=== PATIENT | male | born 1970 | race Two or more races ===

== ENCOUNTER → 2018-11-03 08:01 | Outpatient (CLI) | payer BC, SELFPAY ==
[2018-11-03 10:30] LABS: Color, Urine Yellow (Yellow); Glucose, Dipstick Normal (Normal); Ketone-Dipstick Negative (Negative); Leukocyte Esterase-Dipstick Negative /ul (Negative); Nitrite-Dipstick Negative (Negative); Occult Blood-Urine 10 /ul (Negative); Protein-Dipstick Negative (Negative); Specific Gravity, Urine 1.015 (1.002-1.030); Urine Bilirubin Dipstick Negative (Negative); Urine Clarity Sl. Cloudy (Clear); Urine Urobilinogen Normal (Normal)
[2018-11-03 10:43] LABS: Absolute Lymphocyte Count 2.28 X10^3/ul (0.83-4.51); Absolute Neutrophil Count 4.9 X10^3/uL (2.0-7.7); Basophil# 0.03 X10^3/uL; Basophil% 0.4 % (0-1); Eosinophil# 0.09 X10^3/uL; Eosinophils% 1.1 % (0-5); Hemoglobin 14.7 g/dl (13.0-16.5); Lymphocyte # 2.28 X10^3/ul (4.0); Lymphocyte % 28.1 % (19-41); Mean Corp Hgb Conc 31.3 g/gl (32-36); Mean Corpuscular Hgb 29.3 pg (27.0-32.0); Mean Corpuscular Volume 93.6 fL (80-94); Mean Platelet Vol. 10.9 fl (6.2-12.0); Monocyte# 0.79 X10^3/uL; Monocyte% 9.7 % (0-10); Neutrophil # 4.89 X10^3/uL (2.7-7.7); Neutrophil % 60.3 % (47-70); Platelet Count 298 K/mm3 (150-450); RBC Distribution Width CV 13.4 % (11.6-14.6); RBC Distribution Width SD 45.7 fl (35.1-43.9); Red Blood Count 5.02 M/mm3 (4.6-6.2); White Blood Count 8.1 K/mm3 (4.4-11.0)
[2018-11-03 10:50] LABS: POSITIVE COUNT NO; POSITIVE DIFFERENTIAL NO; POSITIVE MORPHOLOGY NO
[2018-11-03 11:02] LABS: ALB/GLOB Ratio 0.9 RATIO (0.9-2.4); AST(SGOT) 30 U/L (15-37); Alanine Aminotransfer ALT/SGPT 54 U/L (16-61); Albumin, Serum 3.5 g/dL (3.2-5.0); Alkaline Phosphatase 56 U/L (45-117); Anion Gap 6 (5-15); BUN 11 mg/dL (7-18); BUN/Creat Ratio 12.1 RATIO (10-20); Calcium,Total 8.5 mg/dL (8.5-10.1); Chloride 105 mmol/L (98-107); Cholesterol 145 mg/dL (200); Creatinine, Serum 0.91 mg/dL (0.70-1.30); EST Glomerular Filtration Rate 95 mL/min (>60); Est Glom Filt Rate - Afr Amer 115 mL/min (>60); Globulin 3.9 g/dL (2.2-4.2); Glucose 87 mg/dL (74-106); High Density Lipoprotein 39 mg/dL; PSA,Total - Annual Screen 1.26 ng/mL (0.00-4.00); Potassium 3.9 mmol/L (3.5-5.1); Protein, Total 7.4 g/dL (6.4-8.2); Sodium Level 141 mmol/L (136-145); Triglycerides 168 mg/dL; Very Low Density Lipoprotein 34 mg/dL (5-40)
[2018-11-06 20:06] LABS: Testosterone, Free 13.98 ng/dL (5.00-21.00)
[2018-11-07 10:38] LABS: Testosterone, % Free 3.25 % (1.50-4.20); Testosterone, Total 430 ng/dL (264-916)
--- OUTSIDE RECORDS SUMMARY | 2018-12-20 01:05 | XMS RPT_ITS ---
:1970 Author Organization OHIP Care Team Providers Name Role Phone Shailesh Bean Attending Unavailable Shailesh Bean Referring Unavailable Shailesh Bean Primary Care Unavailable Shailesh Bean Attending Unavailable Shailesh Bean Attending Unavailable PROBLEMS PROBLEMS DATE TYPE CONDITION / ATTENDING STATUS SOURCE CODE 01/06/2018 Admitting Unknown / Shailesh Bean Active [facility] Medical diagnosis UNK(Unknown) G [facility] PROCEDURES PROCEDURES No Procedure Records FoundRESULTS RESULTS URINALYSIS, ROUTINE Collected: 11/03/2018 Status: F Source: MICHELE (DIPSTICK) 8:11 AM [facility] REPOSITORY Order Comment: How was Urine Obtained? CLEAN CATCH TYPE CODE TESTS RESULT OUT OF RANGE REFERENCE UNITS LAB L400.3000 Yellow COLOR Normal Yellow LAB L400.3050 Clear Normal CLARITY Sl. Cloudy LAB L400.3200 Normal mg/dl Normal GLUCOSE, UR Normal LAB L400.3300 Negative mg/dL Normal BILIRUBIN URINE Negative LAB L400.3400 Negative mg/dl Normal KETONE UR Negative LAB L400.3465 1.002-1.030 Normal SP.GR. DIPSTX 1.015 LAB L400.3550 5.0 - 8.0 pH UR Normal 6.0 LAB L400.3600 Negative mg/dl PROT Normal DIPSTX Negative LAB L400.3700 Normal mg/dl Normal UROBILI Normal LAB L400.3750 Negative Normal NITRITE UR Negative LAB L400.3780 Negative /ul High 10 OCCULT BLOOD-UR LAB L400.3800 Negative /ul LEUK Normal ESTERASE Negative Performed By: #### L400.2010 #### [facility] [address] [place], [place], [address] CBC W/DIFF, AUTOMATED Collected: 11/03/2018 Status: F Source: MICHELE 8:11 AM [facility] REPOSITORY TYPE CODE TESTS RESULT OUT OF RANGE REFERENCE UNITS LAB L100.1000 4.4-11.0 K/mm3 Normal WBC 8.1 LAB L100.1200 4.6-6.2 M/mm3 Normal RBC 5.02 LAB L100.1300 13.0-16.5 g/dl Normal HGB 14.7 LAB L100.1400 40-54 % Normal HCT 47.0 LAB L100.1500 80-94 fL Normal MCV 93.6 LAB L100.1600 27.0-32.0 pg Normal MCH 29.3 LAB L100.1700 32-36 g/gl Low MCHC 31.3 LAB L100.1810 11.6-14.6 % Normal RDW CV 13.4 LAB L100.1820 35.1-43.9 fl High RDW SD 45.7 LAB L100.1900 150-450 K/mm3 Normal PLT 298 LAB L100.2000 6.2-12.0 fl Normal MPV 10.9 LAB L100.2100 47-70 % Normal NEUT% 60.3 LAB L100.2200 19-41 % Normal LY% 28.1 LAB L100.2300 0-10 % Normal MONO% 9.7 LAB L100.2400 0-5 % Normal EO% 1.1 LAB L100.2500 0-1 % Normal BASO% 0.4 LAB L100.2550 0.0-0.9 % Normal IM GRAN % 0.400 Result Comment: IG% - Immature Granulocytes (promyelocytes, myelocytes and metamyelocytes) > 1% indicates that a LEFT SHIFT is Present. LAB L100.2620 2.0-7.7 X10 3/uL Normal Absolute Neut 4.9 LAB L100.2720 0.83-4.51 X10 3/ul Normal Absolute Lymph 2.28 Performed By: #### L100.0100 #### [facility] [address] [place], [address] COMPREHENSIVE METABOLIC Collected: 11/03/2018 Status: F Source: MICHELE HARTLEY 8:11 AM [facility] REPOSITORY TYPE CODE TESTS RESULT OUT OF RANGE REFERENCE UNITS LAB L501.0100 74-106 mg/dL Normal GLU 87 Result Comment: Please note revised GLUCOSE reference range effective 2017. LAB L501.1000 7-18 mg/dL Normal BUN 11 LAB L501.1100 0.70-1.30 mg/dL Normal CREAT,SERUM 0.91 Result Comment: The validity of the calculated GFR AND GFRAA in patients over 70 years has not been determined. Clinical correlation is essential. LAB L501.1110 >60 mL/min Normal EST GFR 95 Result Comment: Non- GFR Calc LAB L501.1115 >60 mL/min Normal EST GFR - AA 115 Result Comment: GFR Calc LAB L501.1300 10-20 RATIO Normal BUN/CRE 12.1 LAB L501.1500 6.4-8.2 g/dL T Normal PROT 7.4 LAB L501.1800 3.2-5.0 g/dL Normal ALB 3.5 LAB L501.1950 2.2-4.2 g/dL Normal GLOB 3.9 LAB L501.2000 0.9-2.4 RATIO Normal A/G 0.9 LAB L501.2200 8.5-10.1 mg/dL CA Normal 8.5 LAB L501.4100 15-37 U/L Normal AST 30 LAB L501.4305 45-117 U/L Normal ALK P 56 LAB L501.4405 16-61 U/L Normal ALT 54 LAB L501.4600 0.20-1.00 mg/dL T Normal BILI 0.50 LAB L501.5300 136-145 mmol/L NA Normal 141 LAB L501.5600 3.5-5.1 mmol/L K Normal 3.9 LAB L501.5900 98-107 mmol/L CL Normal 105 LAB L501.6100 21.0-32.0 mmol/L Normal CO2 30.0 LAB L501.6200 5-15 Normal GAP 6 Performed By: #### L500.4050, L500.4100, L501.9910 #### [facility] [address] [place], [place], [address] LIPID PROFILE Collected: 11/03/2018 Status: F Source: MICHELE 8:11 AM [facility] REPOSITORY TYPE CODE TESTS RESULT OUT OF RANGE REFERENCE UNITS LAB L501.4900 200 mg/dL Normal CHOL 145 Result Comment: <200 mg/dL Desirable 200-240 mg/dL Borderline >240 mg/dL High Risk LAB L501.5000 mg/dL Normal TRIG 168 Result Comment: The drugs N-Acetylcysteine and Metamizole may falsely depress this assay. Serum Triglycerides Reference Interval Normal <150 mg/dL Borderline high 150 - 199 mg/dL High 200 - 499 mg/dL Very High > or = 500 mg/dL LAB L501.6400 mg/dL Low HDL 39 Result Comment: The drugs N-Acetylcysteine and Metamizole may falsely depress this assay. Reference Range HDL <40 mg/dL Low HDL Cholesterol HDL >or= 60 mg/dL High HDL Cholesterol LAB L501.6500 0-130 mg/dL Normal LDL 72 LAB L501.6600 5-40 mg/dL Normal VLDL 34 Performed By: #### L500.4050, L500.4100, L501.9910 #### [facility] [address] [place], [place], [id number] PSA,TOTAL - ANNUAL Collected: 11/03/2018 Status: F Source: MICHELE SCREEN 8:11 AM [facility] REPOSITORY TYPE CODE TESTS RESULT OUT OF RANGE REFERENCE UNITS LAB L501.9910 0.00-4.00 ng/mL Normal PSA,TOT 1.26 SCREEN Result Comment: This test was performed using the TPSA assay method for the [employer] chemistry system. Values obtained with different assay methods cannot be used interchangably. When changing PSA assays in the course of monitoring a patient, additional sequential testing should be carried out to confirm baseline values. Performed By: #### L500.4050, L500.4100, L501.9910 #### [facility] [address] [place], [address] TESTOSTERONE, TOTAL / Collected: 11/03/2018 Status: F Source: MICHELE FREE 8:11 AM [facility] REPOSITORY Order Comment: Has Patient had X-rays with Contrast this admission? N TYPE CODE TESTS RESULT OUT OF RANGE REFERENCE UNITS LAB L3100.5320 264-916 ng/dL Normal 430 TESTOSTER,TO GALLITO Result Comment: Adult male reference interval is based on a population of healthy nonobese males (BMI <30) between 19 and 39 years old. ginny Barrientos.al. JCEM 2017,102;4828-7536. PMID: [id number]. LAB L3100.5340 5.00-21.00 ng/dL TESTOSTER,FREE Normal 13.98 LAB L3100.5360 1.50-4.20 % TESTOSTER %FREE Normal 3.25 Result Comment: Performed at: [facility] [address] [id number] Hydramatic Specialist: Shaheen Turner PhD, Phone: [phone] Performed at: [facility] [id number] Hydramatic Specialist: Brooklynn Cordova MD, Phone: [phone] Performed By: #### L3100.5310 #### [facility] (refer to report for specific site) refer to report for address and phone number CBC W/DIFF Collected: 05/06/2018 Status: F Source: [facility] 8:54 AM [facility] REPOSITORY TYPE CODE TESTS RESULT OUT OF RANGE REFERENCE UNITS LAB L200.51052 4.5-11.0 K/CU MM WBC Normal 7.4 LAB L200.93321 4.50-6.00 M/CU MM RBC Normal 5.28 LAB L200.70336 13.5-17.5 G/DL HGB Normal 15.5 LAB L200.13030 41.0-53.0 % HCT Normal 48.4 LAB L200.48075 80.0-99.0 fl MCV Normal 91.7 LAB L200.13886 32.0-36.0 GM/DL MCHC Normal 32.0 LAB L200.32220 11-14.5 RDW Normal 13.0 LAB L200.95261 9.4-12.4 MPV Normal 11.2 LAB L200.04737 150-450 K/CU MM PLT Normal 235 LAB L200.20627 45-75 % NEUTROPHILS Normal % 62.5 LAB L200.79085 Less than 2 % IMMATURE Normal GRAN % 0.5 LAB L200.12992 20-40 % LYMPH % Normal 26.0 LAB L200.02889 2-10 % MONOCYTE % Normal 8.8 LAB L200.37830 0-5 % EOSINOPHIL Normal % 1.4 LAB L200.09105 0-2 % BASOPHIL % Normal 0.8 LAB L200.12396 2.0-8.3 K/CU MM NEUTROPHIL Normal ABS 4.60 LAB L200.78233 Less than 2 K/CU MM IMMATR GRAN Normal ABS 0.00 LAB L200.39020 0.9-4.4 K/CU MM LYMPH ABS Normal 1.90 LAB L200.25481 0.1-1.1 K/CU MM MONO ABS Normal 0.70 LAB L200.36058 0-0.5 K/CU MM EOS ABS Normal 0.10 LAB L200.59377 0-0.2 K/CU MM BASO ABS Normal 0.10 LAB L200.52040 Less than 1 % NRBC Normal 0.4 Performed By: #### L200.60006 #### [facility] [place] [address] LIVER Collected: 05/06/2018 Status: F Source: [facility] 8:54 AM [facility] REPOSITORY TYPE CODE TESTS RESULT OUT OF RANGE REFERENCE UNITS LAB L500.47340 6.0-8.5 GM/DL TP Normal 7.2 LAB L500.04059 3.2-5.0 GM/DL Normal ALBUMIN 3.8 LAB L500.29411 2.2-4.2 GM/DL Normal GLOBULIN 3.4 LAB L500.96884 0.8-2.0 Normal A/G RATIO 1.1 LAB L500.27119 0.2-1.0 MG/DL Normal BILI TOTAL 0.4 LAB L500.06342 0.00-0.20 MG/DL Normal BILI DIRECT 0.08 LAB L500.76894 8-34 U/L Normal SGOT (AST) 34 Result Comment: RESULTS MAY BE FALSELY DEPRESSED AFTER THE ADMINISTRATION OF SULFASALAZINE AND/OR SULFAPYRIDINE. LAB L500.10418 13-61 IU/L Normal SGPT (ALT) 57 Result Comment: RESULTS MAY BE FALSELY DEPRESSED AFTER THE ADMINISTRATION OF SULFASALAZINE AND/OR SULFAPYRIDINE. LAB L500.81394 45-117 U/L Normal ALK PHOS 62 Performed By: #### L500.23493, L500.62105, L500.31495 #### [facility] [address] [place] [address] #### L550.21737 #### [facility] [address] [place] [address] LIPID Collected: 05/06/2018 Status: F Source: [facility] 8:54 AM [facility] REPOSITORY TYPE CODE TESTS RESULT OUT OF RANGE REFERENCE UNITS LAB L500.89818 30-149 MG/DL Normal TRIG 121 Result Comment: Patients receiving either N-Acetylcysteine (NAC) or Metamizole prior to venipuncture, may have falsely depressed results. LAB L500.87295 0-199 MG/DL Normal CHOL 165 LAB L500.01414 GREATER [place] 40 MG/DL Normal HDL DIRECT 42 Result Comment: Patients receiving Metamizole prior to venipuncture, may have falsely depressed results. LAB L500.23962 0-129 MG/DL Normal LDL 99 Result Comment: ___CHOLESTEROL/HDL RATIO RISK___ CHD RISK = Total CHOL LDL HDL (CHOL/HDL) Recommended <200 <130 >35 <3.4 Borderline 200-239 130-159 3.4-4.99 High >240 >160 >5.0 Performed By: #### L500.59559, L500.67327, L500.60323 #### [facility] [address] [place] [id number] #### L550.24957 #### [facility] [address] [address] PSA Collected: 05/06/2018 Status: F Source: [facility] 8:54 AM [facility] REPOSITORY TYPE CODE TESTS RESULT OUT OF RANGE REFERENCE UNITS LAB L500.07709 0.0-4.0 NG/ML Normal PSA 1.27 Performed By: #### L500.39877, L500.31252, L500.80447 #### [facility] [address] [place] [address] #### L550.29863 #### [facility] [address] [address] FREE TESTOSTER Collected: 05/06/2018 Status: F Source: [facility] 8:54 AM [facility] REPOSITORY TYPE CODE TESTS RESULT OUT OF REFERENCE UNITS RANGE LAB L550.70392 40.0-250.0 ng/dL TESTFREEWEAK Normal 213.3 Result Comment: Performed At: [facility] [address] [place] [id number] Yue Jamison PhD [phone] Performed At: [facility] [place] [address] [place], [place] [id number] Josh Paula [place] [phone] LAB L550.57801 264-916 ng/dL Normal TOTAL TEST 398 Result Comment: Adult male reference interval is based on a population of healthy nonobese males (BMI <30) between 19 and 39 years old. ginny Barrientos.al. JCEM 2017,102;8799-7707. PMID: [id number]. LAB L550.79128 NG/DL Normal TESTOSTERO LCMS TNP LAB L550.11405 9.0-46. % High 0 TEST FREE&WB % 53.6 Performed By: #### L500.12518, L500.23281, L500.33192 #### [facility] [address] [place] [address] #### L550.39846 #### [facility] [address] [place] [address] FREE TESTOSTER Collected: 01/06/2018 Status: F Source: [facility] 9:00 AM [facility] REPOSITORY TYPE CODE TESTS RESULT OUT OF REFERENCE UNITS RANGE LAB L550.66479 40.0-250.0 ng/dL TESTFREEWEAK Normal 212.5 Result Comment: Performed At: [facility] [address] [place], [place] [id number] Yue Jamison PhD [phone] Performed At: [facility] [address] [id number] Josh Paula [place] [id number] LAB L550.74794 264-916 ng/dL Normal TOTAL TEST 465 Result Comment: Adult male reference interval is based on a population of healthy nonobese males (BMI <30) between 19 and 39 years old. Iliana et.al. JCEM 2017,102;4373-5898. PMID: [id number]. LAB L550.47562 NG/DL Normal TESTOSTERO LCMS TNP LAB L550.18443 9.0-46. % Normal 0 TEST FREE&WB % 45.7 Performed By: #### L550.23886 #### [facility] [address] [place] [address] ALLERGIES ALLERGIES No Allergies Records FoundENCOUNTERS ENCOUNTERS ADMIT/DISCHARGE ACCOUNT ADMITTING ENCOUNTER LOCATION SOURCE NUMBER CLASS 11/03/2018 [id number] Ambulatory Michele Michele 4 [facility] ing:MTLAB Repository 05/06/2018 [id number] Ambulatory [facility] 0 [facility] g:H.MASL Repository 01/06/2018 [id number] Ambulatory [facility] Medical 0 [facility] Reginald g:DIAMOND Repository PAYERS PAYERS ENCOUNTER GUARANTOR PAYER SUBSCRIBER SOURCE 11/03/2018 DINABERTO Primary DINABERTO [place] Insurance:[facility] y [facility] [id number] Repository MARGY ak mercy Date:[id number]: (330) [address], [place] [phone] () [address]ZE: 11/03/2018 Secondary NOT GIVENUNK [place] Insurance:SELF PAY [facility] Number: Effective Repository Date:2018-11-03 05/06/2018 DINALBERTO C [facility]531 Insurance:[facility] OTHERPolicy Number: Repository MARGY ak [id number] [id number]: (330) mercy Date:[id number] () [address], [place] [address]ZQ: 01/06/2018 DINALBERTO C [facility] [id number] Insurance:[facility] MELLO LEWIS OTHERPolicy Number: Repository [id number], [place] [id number] [id number]: (330) mercy Date:[id number] [id number] (HP) [address]ES[place] [id number]:
== END ==
PROVIDERS: Family Provider Family Medicine; PCP Family Medicine; Referring Provider Family Medicine; Visit Provider Family Medicine
DX: Z00.00 Encounter for general adult medical examination without abnormal findings (principal); E78.5 Hyperlipidemia, unspecified; R03.0 Elevated blood-pressure reading, without diagnosis of hypertension; E29.1 Testicular hypofunction; Z12.5 Encounter for screening for malignant neoplasm of prostate
CPT/HCPCS: 36415; 80053; 80061; 81002; 84153; 84402; 84403; 85025; G0103

== ENCOUNTER → 2019-11-17 08:58 | Outpatient (CLI) | payer BC, SELFPAY ==
[2019-11-17 10:25] LABS: Color, Urine Yellow (Yellow); Glucose, Dipstick Normal (Normal); Ketone-Dipstick Negative (Negative); Leukocyte Esterase-Dipstick Negative /ul (Negative); Nitrite-Dipstick Negative (Negative); Occult Blood-Urine 10 /ul (Negative); Protein-Dipstick Negative (Negative); Urine Bilirubin Dipstick Negative (Negative); Urine Clarity Sl. Cloudy (Clear); Urine Urobilinogen Normal (Normal)
[2019-11-17 10:55] LABS: Absolute Lymphocyte Count 2.43 X10^3/uL (0.83-4.51); Absolute Neutrophil Count 7.7 X10^3/uL (2.0-7.7); Basophil# 0.05 X10^3/uL; Basophil% 0.4 % (0-1); Eosinophil# 0.09 X10^3/uL; Eosinophils% 0.8 % (0-5); Hematocrit 48.6 % (40-54); Hemoglobin 15.8 g/dL (13.0-16.5); Lymphocyte # 2.43 X10^3/ul (4.0); Lymphocyte % 21.6 % (19-41); Mean Corp Hgb Conc 32.5 g/dL (32-36); Mean Corpuscular Hgb 29.8 pg (27.0-32.0); Mean Corpuscular Volume 91.5 fL (80-94); Mean Platelet Vol. 11.1 fl (6.2-12.0); Monocyte# 0.88 X10^3/uL; Monocyte% 7.8 % (0-10); NRBC Flagged by Analyzer 0 % (0-5); Neutrophil # 7.73 X10^3/uL (2.7-7.7); Neutrophil % 68.9 % (47-70); Platelet Count 268 K/mm3 (150-450); RBC Distribution Width SD 43.8 fl (35.1-43.9); Red Blood Count 5.31 M/mm3 (4.6-6.2); White Blood Count 11.2 K/mm3 (4.4-11.0)
[2019-11-17 11:38] LABS: ALB/GLOB Ratio 1.1 RATIO (0.9-2.4); AST(SGOT) 31 U/L (15-37); Alanine Aminotransfer ALT/SGPT 60 U/L (16-61); Albumin, Serum 3.8 g/dL (3.2-5.0); Alkaline Phosphatase 62 U/L (45-117); Anion Gap 6 (5-15); BUN 16 mg/dL (7-18); BUN/Creat Ratio 15.5 RATIO (10-20); Calcium,Total 8.8 mg/dL (8.5-10.1); Chloride 105 mmol/L (98-107); Cholesterol 213 mg/dL (200); Creatinine, Serum 1.03 mg/dL (0.70-1.30); EST Glomerular Filtration Rate 81 mL/min (>60); Est Glom Filt Rate - Afr Amer 98 mL/min (>60); Globulin 3.6 g/dL (2.2-4.2); Glucose 104 mg/dL (74-106); High Density Lipoprotein 47 mg/dL; PSA,Total - Annual Screen 1.31 ng/mL (0.00-4.00); Potassium 4.1 mmol/L (3.5-5.1); Protein, Total 7.4 g/dL (6.4-8.2); Sodium Level 139 mmol/L (136-145); Triglycerides 238 mg/dL; Very Low Density Lipoprotein 48 mg/dL (5-40)
== END ==
PROVIDERS: Family Provider Family Medicine; PCP Family Medicine; Referring Provider Family Medicine; Visit Provider Family Medicine
DX: Z00.00 Encounter for general adult medical examination without abnormal findings (principal); R03.0 Elevated blood-pressure reading, without diagnosis of hypertension; E78.5 Hyperlipidemia, unspecified; Z12.5 Encounter for screening for malignant neoplasm of prostate
CPT/HCPCS: 36415; 80053; 80061; 81002; 84153; 85025; G0103

== ENCOUNTER → 2021-02-20 07:52 | Outpatient (CLI) | payer BC, SELFPAY ==
[2021-02-20 10:26] LABS: Absolute Neutrophil Count 3.9 X10^3/uL (2.0-7.7); Basophil# 0.05 X10^3/uL; Basophil% 0.7 % (0-1); Eosinophil# 0.12 X10^3/uL; Eosinophils% 1.6 % (0-5); Hematocrit 48.4 % (40-54); Hemoglobin 15.1 g/dL (13.0-16.5); Lymphocyte % 36.1 % (19-41); Mean Corp Hgb Conc 31.2 g/dL (32-36); Mean Corpuscular Hgb 29.3 pg (27.0-32.0); Mean Platelet Vol. 11.4 fl (6.2-12.0); Monocyte# 0.64 X10^3/uL; Monocyte% 8.6 % (0-10); NRBC Flagged by Analyzer 0 % (0-5); Neutrophil # 3.93 X10^3/uL (2.7-7.7); Neutrophil % 52.5 % (47-70); Platelet Count 277 K/mm3 (150-450); RBC Distribution Width CV 12.6 % (11.6-14.6); RBC Distribution Width SD 43.8 fl (35.1-43.9); Red Blood Count 5.15 M/mm3 (4.6-6.2); White Blood Count 7.5 K/mm3 (4.4-11.0)
[2021-02-20 10:46] LABS: AST(SGOT) 27 U/L (15-37); Alanine Aminotransfer ALT/SGPT 59 U/L (16-61); Albumin, Serum 3.7 g/dL (3.2-5.0); Alkaline Phosphatase 79 U/L (45-117); Anion Gap 6 (5-15); BUN 16 mg/dL (7-18); BUN/Creat Ratio 15.7 RATIO (10-20); Calcium,Total 8.4 mg/dL (8.5-10.1); Chloride 104 mmol/L (98-107); Cholesterol 190 mg/dL (200); Creatinine, Serum 1.02 mg/dL (0.70-1.30); EST Glomerular Filtration Rate 82 mL/min (>60); Est Glom Filt Rate - Afr Amer 99 mL/min (>60); Globulin 3.8 g/dL (2.2-4.2); Glucose 100 mg/dL (74-106); High Density Lipoprotein 47 mg/dL; PSA,Total - Annual Screen 0.97 ng/mL (0.00-4.00); Potassium 4.1 mmol/L (3.5-5.1); Protein, Total 7.5 g/dL (6.4-8.2); Sodium Level 140 mmol/L (136-145); Triglycerides 177 mg/dL; Very Low Density Lipoprotein 35 mg/dL (5-40)
== END ==
PROVIDERS: PCP Family Medicine; Referring Provider Family Medicine; Visit Provider Family Medicine
DX: Z00.00 Encounter for general adult medical examination without abnormal findings (principal); E78.5 Hyperlipidemia, unspecified; Z12.5 Encounter for screening for malignant neoplasm of prostate
CPT/HCPCS: 36415; 80053; 80061; 84153; 85025; G0103

== ENCOUNTER 2022-02-17 08:13 | Outpatient (CLI) | payer BC, SELFPAY ==
[2022-02-17 10:07] LABS: Absolute Lymphocyte Count 2.45 X10^3/uL (0.83-4.51); Absolute Neutrophil Count 6.6 X10^3/uL (2.0-7.7); Basophil# 0.06 X10^3/uL; Basophil% 0.6 % (0-1); Hematocrit 46.2 % (40-54); Hemoglobin 14.9 g/dL (13.0-16.5); Lymphocyte # 2.45 X10^3/ul (0.83-4.51); Lymphocyte % 24.4 % (19-41); Mean Corp Hgb Conc 32.3 g/dL (32-36); Mean Corpuscular Hgb 28.7 pg (27.0-32.0); Mean Platelet Vol. 11.2 fl (6.2-12.0); Monocyte# 0.74 X10^3/uL; Monocyte% 7.4 % (0-10); NRBC Flagged by Analyzer 0 % (0-5); Neutrophil # 6.64 X10^3/uL (2.7-7.7); Platelet Count 253 K/mm3 (150-450); RBC Distribution Width CV 12.8 % (11.6-14.6); RBC Distribution Width SD 42.2 fl (35.1-43.9); Red Blood Count 5.19 M/mm3 (4.6-6.2); White Blood Count 10.1 K/mm3 (4.4-11.0)
[2022-02-17 10:25] LABS: ALB/GLOB Ratio 0.8 RATIO (0.9-2.4); AST(SGOT) 24 U/L (15-37); Alanine Aminotransfer ALT/SGPT 43 U/L (16-61); Albumin, Serum 3.5 g/dL (3.2-5.0); Alkaline Phosphatase 72 U/L (45-117); Anion Gap 5 (5-15); BUN 16 mg/dL (7-18); BUN/Creat Ratio 15.4 RATIO (10-20); Chloride 105 mmol/L (98-107); Cholesterol 179 mg/dL (200); Creatinine, Serum 1.04 mg/dL (0.70-1.30); EST Glomerular Filtration Rate 80 mL/min (>60); Est Glom Filt Rate - Afr Amer 96 mL/min (>60); Globulin 4.3 g/dL (2.2-4.2); Glucose 104 mg/dL (74-106); High Density Lipoprotein 45 mg/dL; Potassium 4.1 mmol/L (3.5-5.1); Protein, Total 7.8 g/dL (6.4-8.2); Sodium Level 139 mmol/L (136-145); Triglycerides 209 mg/dL; Very Low Density Lipoprotein 42 mg/dL (5-40)
[2022-02-20 19:07] LABS: Testosterone, Free 12.86 ng/dL (5.00-21.00)
[2022-02-20 20:02] LABS: Testosterone, % Free 4.66 % (1.50-4.20); Testosterone, Total 276 ng/dL (264-916)
== END 2022-02-17 23:59 | disposition home or self-care (01) ==
LOC: MTLAB 08:15
PROVIDERS: PCP Family Medicine; Referring Provider Family Medicine; Visit Provider Family Medicine
DX: Z00.00 Encounter for general adult medical examination without abnormal findings (principal); E78.5 Hyperlipidemia, unspecified; Z51.81 Encounter for therapeutic drug level monitoring; Z12.5 Encounter for screening for malignant neoplasm of prostate
CPT/HCPCS: 36415; 80053; 80061; 84402; 84403; 85025

== ENCOUNTER 2022-02-23 10:06 | Outpatient (CLI) | payer BC, SELFPAY ==
[2022-02-23 12:32] LABS: PSA,Total - Annual Screen 1.04 ng/mL (0.00-4.00)
== END 2022-02-23 23:59 | disposition home or self-care (01) ==
LOC: MTLAB 10:07
PROVIDERS: PCP Family Medicine; Referring Provider Family Medicine; Visit Provider Family Medicine
DX: Z12.5 Encounter for screening for malignant neoplasm of prostate (principal)
CPT/HCPCS: 36415; 84153; G0103

== ENCOUNTER → 2023-02-18 | Outpatient (CLI) | payer BC, SELFPAY ==
[2023-02-18 12:21] LABS: Absolute Lymphocyte Count 1.94 X10^3/uL (0.83-4.51); Absolute Neutrophil Count 5.1 X10^3/uL (2.0-7.7); Basophil# 0.06 X10^3/uL; Basophil% 0.7 % (0-1); Eosinophil# 0.13 X10^3/uL; Eosinophils% 1.6 % (0-5); Hemoglobin 15.9 g/dL (13.0-16.5); Lymphocyte # 1.94 X10^3/ul (0.83-4.51); Lymphocyte % 24.1 % (19-41); Mean Corp Hgb Conc 31.8 g/dL (32-36); Mean Corpuscular Hgb 29.6 pg (27.0-32.0); Mean Corpuscular Volume 93.1 fL (80-94); Mean Platelet Vol. 10.7 fl (6.2-12.0); Monocyte# 0.74 X10^3/uL; Monocyte% 9.2 % (0-10); NRBC Flagged by Analyzer 0 % (0-5); Neutrophil # 5.14 X10^3/uL (2.7-7.7); Neutrophil % 63.8 % (47-70); Platelet Count 281 K/mm3 (150-450); RBC Distribution Width CV 13.2 % (11.6-14.6); RBC Distribution Width SD 44.8 fl (35.1-43.9); Red Blood Count 5.37 M/mm3 (4.6-6.2); White Blood Count 8.1 K/mm3 (4.4-11.0)
[2023-02-18 12:59] LABS: Vitamin B12 296 pg/mL (211-911); Vitamin D,25 Hydroxy 35.7 ng/mL
[2023-02-18 13:20] LABS: AST(SGOT) 31 U/L (15-37); Alanine Aminotransfer ALT/SGPT 46 U/L (16-61); Albumin, Serum 3.7 g/dL (3.2-5.0); Alkaline Phosphatase 64 U/L (45-117); Anion Gap 5 (5-15); BUN 14 mg/dL (7-18); BUN/Creat Ratio 16.5 RATIO (10-20); Calcium,Total 8.8 mg/dL (8.5-10.1); Chloride 105 mmol/L (98-107); Cholesterol 142 mg/dL (200); Creatinine, Serum 0.85 mg/dL (0.70-1.30); EST Glomerular Filtration Rate 100 mL/min (>60); Est Glom Filt Rate - Afr Amer 121 mL/min (>60); Globulin 3.7 g/dL (2.2-4.2); Glucose 91 mg/dL (74-106); High Density Lipoprotein 37 mg/dL; Protein, Total 7.4 g/dL (6.4-8.2); Sodium Level 137 mmol/L (136-145); T4 Free Direct 0.96 ng/dL (0.76-1.46); Thyroid Stim Hormone (TSH) 3.17 uIU/mL (0.358-3.74); Triglycerides 114 mg/dL; Very Low Density Lipoprotein 23 mg/dL (5-40)
[2023-02-22 04:06] LABS: Testosterone Free 25.1 pg/mL (7.2-24.0)
[2023-02-23 11:11] LABS: Anti-Thyroglobulin AB < 1.0 IU/mL (0.0-0.9); Thyroglobulin, Serum Qt. 47.2 ng/mL (1.4-29.2); Thyroid Peroxidase AB 11 IU/mL (0-34)
== END | disposition home or self-care (01) ==
LOC: MFPLAB 09:39
PROVIDERS: PCP Family Medicine; Referring Provider Family Medicine; Visit Provider Family Medicine
DX: R53.83 Other fatigue (principal); Z12.5 Encounter for screening for malignant neoplasm of prostate; E78.5 Hyperlipidemia, unspecified; E04.1 Nontoxic single thyroid nodule
CPT/HCPCS: 36415; 80053; 80061; 82306; 82607; 84402; 84403; 84432; 84439; 84443; 85025; 86376; 86800

== ENCOUNTER → 2023-03-10 | Outpatient (CLI) | payer BC, SELFPAY ==
--- NOTE | 2023-03-10 12:40 | US_ITS ---
INDICATION: NODULE EXAMINATION: Ultrasound US Thyroid (eg thyroid, parathyroid, parotid) TECHNIQUE: Luo scale and color doppler imaging was performed of the thyroid gland. COMPARISON: None. FINDINGS: RIGHT THYROID LOBE: Measures 4.9 x 2 x 2.2 cm. Homogeneous echotexture with normal vascularity. [Multiple thyroid nodules: -A solid and cystic isoechoic 1.4 cm nodule in the midpole. -A 1.3 cm solid and cystic isoechoic nodule in the midpole. -A 0.7 cm solid and cystic nodule in the lower pole. LEFT THYROID LOBE: Measures 4.5 x 2 x 1.6 cm. Homogeneous echotexture with normal vascularity. [Multiple thyroid nodules are present: -A mostly cystic 5 mm isoechoic nodule -A mostly cystic 6 mm isoechoic nodule -A 9 mm solid and cystic isoechoic nodule in the lateral aspect. ISTHMUS: Measures 3 mm . No thyroid nodules are present. US/Thyroid IMPRESSION: Multinodular goiter: -1.4 cm TI-RADS 2 nodule in the right mid pole is not suspicious. -1.3 cm TI-RADS 2 nodule in the right mid pole is not suspicious. -0.7 cm TI-RADS 2 nodule in the right lower pole is not suspicious. -0.5 cm TI-RADS 1 cyst in the left lobe is benign. -0.6 cm TI-RADS 1 cyst in the left lobe is benign. -0.9 cm TI-RADS 2 nodule in the right mid pole is not suspicious. No FNA recommended. Electronically Signed: Lenny Jernigan MD at 0:03 EDT ,
== END | disposition home or self-care (01) ==
PROVIDERS: PCP Family Medicine; Referring Provider Family Medicine; Visit Provider Family Medicine
DX: E04.1 Nontoxic single thyroid nodule (principal)
CPT/HCPCS: 76536

== ENCOUNTER → 2023-05-20 | Outpatient (CLI) | payer BC, SELFPAY ==
[2023-05-20 10:31] LABS: Absolute Lymphocyte Count 1.85 X10^3/uL (0.83-4.51); Absolute Neutrophil Count 3.2 X10^3/uL (2.0-7.7); Basophil# 0.06 X10^3/uL; Eosinophil# 0.09 X10^3/uL; Eosinophils% 1.5 % (0-5); Hematocrit 47.1 % (40-54); Hemoglobin 15.4 g/dL (13.0-16.5); Lymphocyte # 1.85 X10^3/ul (0.83-4.51); Lymphocyte % 31.8 % (19-41); Mean Corp Hgb Conc 32.7 g/dL (32-36); Mean Corpuscular Hgb 30.7 pg (27.0-32.0); Mean Platelet Vol. 10.6 fl (6.2-12.0); Monocyte# 0.61 X10^3/uL; Monocyte% 10.5 % (0-10); NRBC Flagged by Analyzer 0 % (0-5); Neutrophil # 3.19 X10^3/uL (2.7-7.7); Neutrophil % 54.9 % (47-70); Platelet Count 263 K/mm3 (150-450); RBC Distribution Width CV 13.9 % (11.6-14.6); RBC Distribution Width SD 48.4 fl (35.1-43.9); Red Blood Count 5.01 M/mm3 (4.6-6.2); White Blood Count 5.8 K/mm3 (4.4-11.0)
[2023-05-20 11:05] LABS: ALB/GLOB Ratio 0.8 RATIO (0.9-2.4); AST(SGOT) 26 U/L (15-37); Alanine Aminotransfer ALT/SGPT 37 U/L (16-61); Albumin, Serum 3.4 g/dL (3.2-5.0); Alkaline Phosphatase 62 U/L (45-117); Anion Gap 6 (5-15); BUN 14 mg/dL (7-18); BUN/Creat Ratio 13.9 RATIO (10-20); Calcium,Total 8.2 mg/dL (8.5-10.1); Chloride 106 mmol/L (98-107); Cholesterol 189 mg/dL (200); Creatinine, Serum 1.01 mg/dL (0.70-1.30); EST Glomerular Filtration Rate 82 mL/min (>60); Est Glom Filt Rate - Afr Amer 99 mL/min (>60); Glucose 96 mg/dL (74-106); High Density Lipoprotein 43 mg/dL; Potassium 4.1 mmol/L (3.5-5.1); Protein, Total 7.4 g/dL (6.4-8.2); Sodium Level 139 mmol/L (136-145); Triglycerides 147 mg/dL; Very Low Density Lipoprotein 29 mg/dL (5-40)
[2023-05-24 15:09] LABS: Testosterone Free 17.6 pg/mL (7.2-24.0)
== END | disposition home or self-care (01) ==
LOC: MFPLAB 09:26
PROVIDERS: PCP Family Medicine; Visit Provider Family Medicine
DX: E34.9 Endocrine disorder, unspecified (principal); E78.5 Hyperlipidemia, unspecified
CPT/HCPCS: 36415; 80053; 80061; 84402; 84403; 85025

== ENCOUNTER 2024-04-03 17:56 | Emergency (ER) | payer BC, SELFPAY ==
[2024-04-03 17:57] VITALS: BP 128/70; PULSE 156; RESP 18; TEMP 36.8; O2SAT 100; BMI 29.7
--- NOTE | 2024-04-03 18:26 | US_ITS ---
INDICATION: Pain EXAMINATION: US Abdomen RUQ (limited) TECHNIQUE: Chiang-scale and color Doppler imaging was performed of the right upper abdominal quadrant. COMPARISON: None. Findings: The liver is homogenous and normal in echogenicity and echotexture. There is no evidence of contour nodularity. No focal hepatic mass is identified. There is occlusive clot seen in the main portal vein. The gallbladder is unremarkable without evidence of stones, wall thickening or pericholecystic fluid. Sonographic Daley''s tenderness is not appreciated. There is no evidence of intrahepatic biliary ductal dilatation. The CBD is nondilated measuring 4 mm at the level of the do hepatis. The pancreas is obscured by overlying bowel gas. Right kidney measures 11.7 cm in length. It is normal in echogenicity. No focal renal lesion is identified. There is no evidence of hydronephrosis. US/Gallbladder IMPRESSION: Findings suspicious for portal vein thrombosis. Recommend CTA or MRA of the abdomen portal venous phase. No evidence of cirrhosis. Electronically Signed: Lenny Jernigan MD at 19:58 EDT ,
--- NOTE | 2024-04-03 18:27 | EDS_ITS ---
HPI HPI - GI History of Present Illness Chief Complaint: Abd Pain Narrative Narrative: 54-year-old male who denies significant past medical history presents with epigastric to right upper quadrant abdominal pain with nausea and diarrhea as well. He states that this afternoon, he had 2 bites of potato salad for lunch, and started getting epigastric to right upper quadrant abdominal pain. He relates history that he had remote surgery of back in [place] for gas troesophageal reflux disease but cannot remember the type of surgery or the name of the surgery that he had had. However, he feels like he is nauseated and has to vomit but is unable to do so. He had at least 10 episodes of watery stool afterwards. The pain in his abdomen is mainly in the epigastrium to right upper quadrant. He denies any lower abdominal pain. No chest pain or shortness of br eath. No exacerbating or alleviating factors. PFSH PFSH Allergy/AdvReac Type Severity Reaction Status Date / Time No Known Allergies Allergy Verified 04/03/24 17:59 Surgical History H/O abdominal surgery Hx of [facility] Social History household members: family Smoking Status: Never smoker ROS ROS ED ROS Narrative Constitutional: No fever, no chills. HEENT: No sore throat. No neck pain. No loss of vision. No rhinorrhea. Cardiovascular: No chest pain. No palpitations. No pedal edema. Respiratory: No cough, no shortness of breath. Abdominal: Epigastric to right upper quadrant abdominal pain. Positive nausea. No vomiting. Patient states he is unable to vomit status post his surgery for reflux. Positive diarrhea, at least 10 episodes without any blood. Genitourinary: No dysuria. No hematuria. Musculoskeletal: No myalgias. No arthralgias. Neurologic: No headaches. No dizziness. No lightheadedness. Skin: No rash. No change in color. Psychiatric: No depression. No anxiety. EXAM Physical Exam Narrative Exam Narrative: Afebrile. Vital signs noted. HEENT: Normocephalic. Atraumatic. PERRL, EOMI. Neck soft and supple. No point tenderness or step off. Cardiovascular: Positive regular tachycardia no murmurs, rubs, or gallops appreciated. Respiratory: No tachypnea. Lungs clear to auscultation bilaterally. Gastrointestinal: Abdomen soft, with tenderness in epigastrium to right upper quadrant with normoactive bowel sounds. Questionable positive Daley sign. Neurological: Awake. Alert. Nonfocal, nonlateralizing. Skin: No rash. Normal color. No pallor. Musculoskeletal: No pedal edema. Full range of motion extremities. Const Vital Signs: 04/03/24 17:57 04/03/24 20:00 04/03/24 21:00 Temperature 98.2 F Temperature Source Temporal Pulse Rate 156 H 112 H 124 H Respiratory Rate 18 18 20 H Blood Pressure 128/70 H 131/82 H 151/101 H Blood Pressure Mean 89 98 117 Pulse Ox 100 96 99 Oxygen Delivery Method Room Air Room Air Room Air 04/03/24 22:00 04/03/24 23:00 04/04/24 00:00 Temperature Temperature Source Pulse Rate 102 H 101 H 108 H Respiratory Rate 18 18 18 Blood Pressure 132/84 H 132/85 H 112/73 Blood Pressure Mean 100 100 86 Pulse Ox 98 98 97 Oxygen Delivery Method Room Air Room Air Room Air MDM MDM MDM Narrative Medical decision making narrative: In the differential diagnosis is pancreatitis versus cholecystitis versus choledocholithiasis versus colitis. His pain is all in the upper area of the abdomen. I do feel that basic laboratory work should be drawn including CBC, CMP, and lipase to help rule out pancreatitis, and as far as imaging modality that ultrasound would be more beneficial at CT at this time. He was bolused normal saline 1 L intravenously, and was administered morphine and ondansetron for analgesia. His triage heart rate was elevated in the 150s. EKG was obtained and interpreted by myself independently as sinus tachycardia at [address] changes. No STEMI. Additionally, on the monitor his heart rate was down to the 120s during history and physical. I reviewed his laboratory work from today and he has a leukocytosis of 18.1 with hemoglobin 15.1, hematocrit 46.7, platelet count 161. Review of his electrolytes showed normal sodium of 137 and potassium 4.4 with chloride 104. BUN slightly elevated 19 with creatinine 1.26. Glucose is elevated at 171 with a normal anion gap of 11. AST is slightly elevated at 38 which I think is nonspecific, lipase normal at 29 so I doubt pancreatitis. Urinalysis is negative for infection. I do not feel he needs antibiotics currently. Repeat after morphine and ondansetron shows his abdomen to remain soft and he feels improved. However, he remains mildly tachycardic. I reviewed the radiology report of the ultrasound of the gallbladder. They state that there is concern for portal vein thrombosis. CTA or MRA of the abdomen is recommended. I had also gotten the radiology report given his copious diarrhea. The CT with IV contrast is suspicious for portal vein thrombosis as well. Suspicion is also noted on the radiology report that I reviewed for infectious versus inflammatory enterocolitis. Given the concern for portal venous thrombosis, I did order the CTA, but in discussion with radiology, they state that the patient might need interventional radiology angiography versus MRA, both of which are unavailable currently at this facility. I discussed with the patient transfer and he has elected [facility]. I discussed patient with the transfer line. Patient has been accepted for further studies for possible portal venous thrombosis. The concern was also that he was tachycardic, and that his findings of enterocolitis could be from backup of venous blood/lack of blood flow. While lactic acid is slightly elevated at 2.3 I am reluctant to give a large amount of fluid which might make his condition worse. However, I have lower suspicion for ischemic gut currently because he does not have pain out of proportion and his pain seems to be well-controlled currently after 1 dose of morphine. Repeat heart rate is down to 108 bpm. Disposition is transferred in stable condition. History & Record Review Discussion w/independent historian: Patient Lab Data Attestation: I reviewed the patient's lab results. Labs: Laboratory Results - last 24 hr 04/03/24 04/03/24 04/03/24 18:15 20:40 20:43 WBC 18.1 H RBC 5.18 Hgb 15.4 Hct 46.7 MCV 90.2 MCH 29.7 MCHC 33.0 RDW Std Deviation 43.1 RDW Coeff of Roxane 13.1 Plt Count 161 MPV 11.0 Immature Gran % (Auto) 1.000 H Neut % (Auto) 84.7 H Lymph % (Auto) 7.3 L [place] % (Auto) 6.5 Eos % (Auto) 0.1 Baso % (Auto) 0.4 Absolute Neuts (auto) 15.4 H Absolute Lymphs (auto) 1.32 Nucleated RBC % 0 Sodium 137 Potassium 4.4 Chloride 104 Carbon Dioxide 22.0 Anion Gap 11 BUN 19 H Creatinine 1.26 Estim Creat Clear Calc 70.29 Est GFR (MDRD) Af Amer 77 Est GFR (MDRD) Non-Af 63 BUN/Creatinine Ratio 15.1 Glucose 171 H Lactic Acid 2.3 H* Calcium 9.2 Total Bilirubin 0.80 AST 38 H ALT 37 Alkaline Phosphatase 66 Troponin I High Sens 5 Total Protein 8.0 Albumin 3.5 Globulin 4.5 H Albumin/Globulin Ratio 0.8 L Lipase 29 Urine Color Yellow Urine Clarity Clear Urine pH 6.5 Ur Specific [place] 1.010 Urine Protein 30 H Urine Glucose (UA) Normal Urine Ketones 15 H Urine Occult Blood 10 H Urine Nitrite Negative Urine Bilirubin Negative Urine Urobilinogen Normal Ur Leukocyte Esterase Negative Urine RBC 0 SEEN Urine WBC 0 SEEN Ur Squamous Epith Cells 0 SEEN Urine Bacteria 0 SEEN Urine Mucus 1+ Radiography Diagnostic Testing: Clinical Impression(s) from Imaging Studies Gallbladder Ultrasound 04/03/24 18:26 IMPRESSION: Findings suspicious for portal vein thrombosis. Recommend CTA or MRA of the abdomen portal venous phase. No evidence of cirrhosis. Electronically Signed: Lenny Jernigan MD at 19:58 EDT , Abdomen/Pelvis CT 04/03/24 18:36 IMPRESSION: Portal vein thrombosis. Difficult to determine extent/severity as there is very little contrast seen throughout the entire portal venous system. Consider angiography. Findings suspicious for infectious versus inflammatory enterocolitis. Multiple hepatic hemangiomas. Electronically Signed: Lenny Jernigan MD at 20:06 EDT , ADDENDUM: 04/03/24 2019 IMPRESSION: Portal vein thrombosis. Difficult to determine extent/severity as there is very little contrast seen throughout the entire portal venous system. Consider angiography. Findings suspicious for infectious versus inflammatory enterocolitis. Multiple hepatic hemangiomas. N.B. : Jose Eduardo Hobbs MD, confirmed on 04/03/2024 20:11:52 (ET) that the healthcare facility has received the radiology report. Electronically Signed: Lenny Jernigan MD at 20:06 EDT , Discharge Plan Triage Chief Complaint: Abd Pain ED Provider: Jose Eduardo Hobbs Dx/Rx/DC Orders Primary Care Provider: Prashant Lomeli Referrals: Prashant Lomeli MD [Primary Care Provider] -
[2024-04-03] MEDS: 0.9% Normal Saline (1000mL) 1,000 ML 1000 ML IV (18:31)
[2024-04-03] MEDS: Ondansetron 4 MG/2 ML Vial IV (18:31)
[2024-04-03] MEDS: Morphine 4 MG/ML Syringe IV (18:31)
[2024-04-03 18:34] LABS: Absolute Lymphocyte Count 1.32 X10^3/uL (0.83-4.51); Absolute Neutrophil Count 15.4 X10^3/uL (2.0-7.7); Basophil# 0.07 X10^3/uL; Basophil% 0.4 % (0-1); Eosinophil# 0.01 X10^3/uL; Eosinophils% 0.1 % (0-5); Hematocrit 46.7 % (40-54); Hemoglobin 15.4 g/dL (13.0-16.5); Lymphocyte # 1.32 X10^3/ul (0.83-4.51); Lymphocyte % 7.3 % (19-41); Mean Corpuscular Hgb 29.7 pg (27.0-32.0); Mean Corpuscular Volume 90.2 fL (80-94); Monocyte# 1.17 X10^3/uL; Monocyte% 6.5 % (0-10); NRBC Flagged by Analyzer 0 % (0-5); Neutrophil # 15.35 X10^3/uL (2.7-7.7); Neutrophil % 84.7 % (47-70); Platelet Count 161 K/mm3 (150-450); RBC Distribution Width CV 13.1 % (11.6-14.6); RBC Distribution Width SD 43.1 fl (35.1-43.9); Red Blood Count 5.18 M/mm3 (4.6-6.2); White Blood Count 18.1 K/mm3 (4.4-11.0)
--- NOTE | 2024-04-03 18:36 | CT_ITS ---
ACR Level 3 findings have been noted. An addendum which confirms receipt of the report will follow. INDICATION: Pain EXAMINATION: CT Abdomen And Pelvis W/ Contrast Injection TECHNIQUE: Helically acquired images were obtained of the abdomen and pelvis after IV contrast. A radiation dose optimization technique was used for this scan. IV Contrast dosage and agent: IV 100mL [id number] Oral contrast: None. COMPARISON: None. FINDINGS: Visualized lung bases: Unremarkable Liver: There are multiple hepatic hemangiomas, for example a 2.1 cm lesion in the hepatic dome. Gallbladder: Unremarkable Spleen: Unremarkable Pancreas: Unremarkable Adrenal Glands: Unremarkable Kidneys: Unremarkable Vasculature: Mild scattered aortoiliac atherosclerotic calcifications. There is occlusive clot seen within the main portal vein. GI Tract: Diffuse long segment circumferential wall thickening of the large and small bowel with surrounding mesenteric fat stranding. No focal fluid collection or free air. Lymphadenopathy: None Peritoneum: No ascites. Bladder: Unremarkable Reproductive organs: Unremarkable Bones/Soft tissues: No suspicious osseous or soft tissue lesions CT/Abdomen/Pelvis W IV Cont ONLY IMPRESSION: Portal vein thrombosis. Difficult to determine extent/severity as there is very little contrast seen throughout the entire portal venous system. Consider angiography. Findings suspicious for infectious versus inflammatory enterocolitis. Multiple hepatic hemangiomas. Electronically Signed: Lenny Jernigan MD at 20:06 EDT ,
[2024-04-03 19:10] LABS: ALB/GLOB Ratio 0.8 RATIO (0.9-2.4); AST(SGOT) 38 U/L (15-37); Alanine Aminotransfer ALT/SGPT 37 U/L (16-61); Albumin, Serum 3.5 g/dL (3.2-5.0); Alkaline Phosphatase 66 U/L (45-117); Anion Gap 11 (5-15); BUN 19 mg/dL (7-18); BUN/Creat Ratio 15.1 RATIO (10-20); Calcium,Total 9.2 mg/dL (8.5-10.1); Chloride 104 mmol/L (98-107); Creatinine, Serum 1.26 mg/dL (0.70-1.30); EST Glomerular Filtration Rate 63 mL/min (>60); Est Glom Filt Rate - Afr Amer 77 mL/min (>60); Estimated Creatinine Clearance 70.29 ml/min; Globulin 4.5 g/dL (2.2-4.2); Glucose 171 mg/dL (74-106); Lipase 29 U/L (13-75); Potassium 4.4 mmol/L (3.5-5.1); Sodium Level 137 mmol/L (136-145); Troponin-I HS 5 pg/mL (3.0-78.0)
[2024-04-03 20:00] VITALS: BP 131/82; PULSE 112; RESP 18; O2SAT 96
[2024-04-03 20:56] LABS: Bacteria 0 SEEN /hpf (None Seen); Red Blood Cells-Urine 0 SEEN /hpf (0-5); Squamous Epithelial Cells - UA 0 SEEN /hpf (0-5); White Blood Cells 0 SEEN /hpf (0-5)
[2024-04-03 21:00] VITALS: BP 151/101; PULSE 124; RESP 20; O2SAT 99
[2024-04-03 21:13] LABS: Color, Urine Yellow (Yellow); Glucose, Dipstick Normal (Normal); Ketone-Dipstick 15 mg/dl (Negative); Leukocyte Esterase-Dipstick Negative /ul (Negative); Nitrite-Dipstick Negative (Negative); Occult Blood-Urine 10 /ul (Negative); Protein-Dipstick 30 mg/dl (Negative); Urine Bilirubin Dipstick Negative (Negative); Urine Clarity Clear (Clear); Urine Urobilinogen Normal (Normal); Urine pH 6.5 (5.0 - 8.0)
[2024-04-03 21:34] LABS: Lactic Acid 2.3 mmol/L (0.4-1.9)
[2024-04-03 21:36] LABS: Mucous, Urine 1+ /hpf (<or=2+)
[2024-04-03 22:00] VITALS: BP 132/84; PULSE 102; RESP 18; O2SAT 98
[2024-04-03 23:00] VITALS: BP 132/85; PULSE 101; RESP 18; O2SAT 98
[2024-04-04] VITALS: BP 112/73; PULSE 108; RESP 18; O2SAT 97
[2024-04-04 00:43] LABS: Reflex Lactate? Y
[2024-04-04 01:00] VITALS: BP 142/82; PULSE 108; RESP 18; O2SAT 97
[2024-04-04 01:18] LABS: Lactic Acid 1.5 mmol/L (0.4-1.9)
[2024-04-04 01:25] VITALS: BP 142/82; PULSE 108; RESP 18; TEMP 36.2; O2SAT 97
== END 2024-04-04 01:34 | disposition short-term general hospital (02) ==
LOC: ED 18:44
PROVIDERS: Emergency Provider Emergency Medicine; PCP Family Medicine; Visit Provider Emergency Medicine
DX: R10.9 Unspecified abdominal pain (principal); K52.9 Noninfective gastroenteritis and colitis, unspecified; R73.9 Hyperglycemia, unspecified; I81 Portal vein thrombosis; D18.03 Hemangioma of intra-abdominal structures
CPT/HCPCS: 74177; 76705; 80053; 81001; 83605; 83690; 84484; 85025; 93005; 96361; 96374; 96375; 99284; J7030; Q9967; A4216; J2405

== ENCOUNTER → 2024-04-20 | Outpatient (CLI) | payer BC, SELFPAY ==
[2024-04-20 13:02] LABS: Absolute Lymphocyte Count 1.85 X10^3/uL (0.83-4.51); Absolute Neutrophil Count 3.7 X10^3/uL (2.0-7.7); Basophil# 0.08 X10^3/uL; Basophil% 1.2 % (0-1); Eosinophil# 0.09 X10^3/uL; Eosinophils% 1.4 % (0-5); Hematocrit 45.5 % (40-54); Hemoglobin 14.4 g/dL (13.0-16.5); Lymphocyte # 1.85 X10^3/ul (0.83-4.51); Lymphocyte % 28.8 % (19-41); Mean Corp Hgb Conc 31.6 g/dL (32-36); Mean Corpuscular Hgb 29.7 pg (27.0-32.0); Mean Corpuscular Volume 93.8 fL (80-94); Mean Platelet Vol. 10.7 fl (6.2-12.0); Monocyte# 0.64 X10^3/uL; NRBC Flagged by Analyzer 0 % (0-5); Neutrophil # 3.74 X10^3/uL (2.7-7.7); Neutrophil % 58.3 % (47-70); Platelet Count 309 K/mm3 (150-450); RBC Distribution Width CV 13.1 % (11.6-14.6); RBC Distribution Width SD 44.8 fl (35.1-43.9); Red Blood Count 4.85 M/mm3 (4.6-6.2); White Blood Count 6.4 K/mm3 (4.4-11.0)
[2024-04-20 13:24] LABS: Vitamin B12 782 pg/mL (211-911)
[2024-04-20 13:51] LABS: ALB/GLOB Ratio 0.8 RATIO (0.9-2.4); AST(SGOT) 47 U/L (15-37); Alanine Aminotransfer ALT/SGPT 87 U/L (16-61); Albumin, Serum 3.4 g/dL (3.2-5.0); Alkaline Phosphatase 71 U/L (45-117); Anion Gap 4 (5-15); BUN 9 mg/dL (7-18); BUN/Creat Ratio 10.2 RATIO (10-20); Calcium,Total 8.6 mg/dL (8.5-10.1); Chloride 107 mmol/L (98-107); Cholesterol 196 mg/dL (200); Creatinine, Serum 0.88 mg/dL (0.70-1.30); EST Glomerular Filtration Rate 95 mL/min (>60); Est Glom Filt Rate - Afr Amer 115 mL/min (>60); Ferritin 110 ng/mL (26-388); Globulin 4.1 g/dL (2.2-4.2); Glucose 89 mg/dL (74-106); High Density Lipoprotein 41 mg/dL; Iron 62 ug/dL (65-175); Iron Binding Capacity,Total 365 ug/dL (250-450); Potassium 3.9 mmol/L (3.5-5.1); Protein, Total 7.5 g/dL (6.4-8.2); Sodium Level 138 mmol/L (136-145); Triglycerides 136 mg/dL; Very Low Density Lipoprotein 27 mg/dL (5-40)
[2024-04-27 15:09] LABS: Testosterone Free 8.1 pg/mL (7.2-24.0)
== END | disposition home or self-care (01) ==
LOC: MFPLAB 10:07
PROVIDERS: PCP Family Medicine; Visit Provider Family Medicine
DX: E34.9 Endocrine disorder, unspecified (principal); E78.5 Hyperlipidemia, unspecified; D64.9 Anemia, unspecified
CPT/HCPCS: 36415; 80053; 80061; 82607; 82728; 82746; 83540; 83550; 84402; 84403; 85025

== ENCOUNTER → 2024-06-20 | Outpatient (CLI) | payer BC, SELFPAY ==
[2024-06-20 13:04] LABS: Ferritin 49 ng/mL (26-388); Iron 152 ug/dL (65-175); Iron Binding Capacity,Total 396 ug/dL (250-450); PSA,Total - Annual Screen 1.07 ng/mL (0.00-4.00)
== END | disposition home or self-care (01) ==
LOC: MFPLAB 09:27
PROVIDERS: PCP Family Medicine; Visit Provider Family Medicine
DX: Z12.5 Encounter for screening for malignant neoplasm of prostate (principal); E61.1 Iron deficiency
CPT/HCPCS: 36415; 82728; 83540; 83550; 84153; G0103